=== PATIENT | female | born 1945 | race Caucasian/White ===

== ENCOUNTER 2020-12-06 21:02 | Inpatient (IN) | payer BC, MEDICAID ==
[~2020-12-06] VITALS: Ht 167.6 cm; Wt 78.9 kg
[2020-12-06 21:10] VITALS: BP_SYST 150
[2020-12-06] MEDS: ASPIRIN 81 MG TAB.CHEW PO ONE ×2 (23:13→23:20)
[2020-12-06 23:39] LABS: BASOPHILS % (AUTO) 0.7 % (0.0-2.0); EOSINOPHILS # (AUTO) 0.1 K/uL (0.0-0.4); EOSINOPHILS % (AUTO) 2.5 % (0.0-4.0); HEMATOCRIT 41.2 % (36-48); HEMOGLOBIN 13.7 g/dL (12.0-16.0); LYMPHOCYTES # (AUTO) 1.6 K/uL (1.0-5.5); LYMPHOCYTES % (AUTO) 29.6 % (20.5-51.5); MEAN CORPUSCULAR HEMOGLOBIN 31 pg (27-31); MEAN CORPUSCULAR HGB CONC 33 % (32-36); MEAN CORPUSCULAR VOLUME 93 fL (79.0-98.0); MONOCYTES # (AUTO) 0.5 K/uL (0.0-1.0); MONOCYTES % (AUTO) 8.4 % (1.7-9.3); NEUTROPHILS # (AUTO) 3.1 K/uL (1.8-7.7); NEUTROPHILS % (AUTO) 58.8 % (40.0-70.0); PLATELET COUNT (AUTO) 179 K/uL (130-430); RED BLOOD CELL COUNT(AUTO) 4.45 MIL/uL (4.2-6.2); RED CELL DISTRIBUTION WIDTH 14.6 % (9.0-15.0); WHITE BLOOD COUNT (AUTO) 5.3 K/uL (4.8-10.8)
[2020-12-06 23:54] LABS: ANION GAP 7 (5-15); CALCIUM 9.2 mg/dL (8.4-11.0); CHLORIDE 102 mmol/L (98-107); CREATININE 0.79 mg/dL (0.55-1.30); GLUCOSE 87 mg/dL (70-99); POTASSIUM 4.5 mmol/L (3.5-5.1); SODIUM SERUM 137 mmol/L (136-145); UREA NITROGEN, BLOOD 10 mg/dL (8-21)
[2020-12-06 23:56] LABS: PROTHROMBIN TIME 10.7 SECS (9.5-12.5)
[2020-12-07] MEDS ORDERED: AZITHROMYCIN 250 MG TABLET PO ONE
[2020-12-07 00:04] LABS: ALANINE AMINOTRANSFERASE 30 U/L (12-78); ALBUMIN 3.4 g/dL (3.4-4.8); ASPARTATE AMINOTRANSFERASE 32 U/L (10-37); LIPASE 229 U/L (73-393); TOTAL BILIRUBIN 0.8 mg/dL (0.0-1.0)
[2020-12-07 00:27] LABS: ERYTHROCYTE SEDIMENTATION RATE 48 MM/HR (0-20)
[2020-12-07 00:53] LABS: BILIRUBIN,URINE NEGATIVE (NEGATIVE); BLOOD, URINE NEGATIVE (NEGATIVE); CLARITY/URINE SL CLOUDY (CLEAR); COLOR,URINE YELLOW (YELLOW); GLUCOSE,URINE NEGATIVE (NEGATIVE); KETONES,URINE NEGATIVE (NEGATIVE); LEUKOCYTE ESTERASE ,URINE NEGATIVE (NEGATIVE); NITRITE, URINE POSITIVE (NEGATIVE); PROTEIN URINE NEGATIVE (NEGATIVE); UROBILINOGEN,URINE 0.2 (0.2-1.0)
[2020-12-07 01:04] LABS: BACTERIA,URINE MANY /HPF (None Seen); RBC,URINE 0-3 /HPF (0-3)
[2020-12-07] MEDS ORDERED: IOHEXOL 350 mgI/mL, 150 ML INFUS..BTL IV ONE (01:08)
[2020-12-07] MEDS ORDERED: cefTRIAXone 1 GM IVPB PREMIX 50 ML IV ONE ×2 (01:30)
[2020-12-07] MEDS ORDERED: VITD400 PO (02:21)
[2020-12-07] MEDS ORDERED: ZINC50TA69 PO (02:21)
[2020-12-07] MEDS ORDERED: ACETAMINOPHEN 325 MG TABLET PO PRN (06:00)
[2020-12-07] MEDS ORDERED: ALBUTEROL SULFATE 0.083% 2.5 MG/3 ML VIAL.NEB INH PRN (06:00)
[2020-12-07 06:08] VITALS: BP_SYST 156
[2020-12-07 08:00] VITALS: BP_SYST 128
[2020-12-07 08:13] LABS: BASOPHILS % (AUTO) 0.6 % (0.0-2.0); EOSINOPHILS # (AUTO) 0.1 K/uL (0.0-0.4); EOSINOPHILS % (AUTO) 2.8 % (0.0-4.0); HEMATOCRIT 41.2 % (36-48); HEMOGLOBIN 13.5 g/dL (12.0-16.0); MEAN CORPUSCULAR HEMOGLOBIN 30 pg (27-31); MEAN CORPUSCULAR HGB CONC 33 % (32-36); MEAN CORPUSCULAR VOLUME 92 fL (79.0-98.0); MONOCYTES # (AUTO) 0.3 K/uL (0.0-1.0); MONOCYTES % (AUTO) 7.4 % (1.7-9.3); NEUTROPHILS # (AUTO) 3.2 K/uL (1.8-7.7); NEUTROPHILS % (AUTO) 67.2 % (40.0-70.0); PLATELET COUNT (AUTO) 175 K/uL (130-430); RED BLOOD CELL COUNT(AUTO) 4.49 MIL/uL (4.2-6.2); RED CELL DISTRIBUTION WIDTH 14.5 % (9.0-15.0); WHITE BLOOD COUNT (AUTO) 4.7 K/uL (4.8-10.8)
[2020-12-07 08:32] LABS: ALANINE AMINOTRANSFERASE 24 U/L (12-78); ALBUMIN 3.2 g/dL (3.4-4.8); ANION GAP 6 (5-15); ASPARTATE AMINOTRANSFERASE 29 U/L (10-37); CHLORIDE 102 mmol/L (98-107); CREATININE 0.72 mg/dL (0.55-1.30); GLUCOSE 87 mg/dL (70-99); POTASSIUM 3.9 mmol/L (3.5-5.1); SODIUM SERUM 137 mmol/L (136-145); TOTAL BILIRUBIN 0.8 mg/dL (0.0-1.0); UREA NITROGEN, BLOOD 8 mg/dL (8-21)
[2020-12-07 12:00] VITALS: BP_SYST 138
[2020-12-07 15:15] VITALS: BP_SYST 129
[2020-12-07] MEDS ORDERED: AZITHROMYCIN 500 MG in NS 250 ML IV SCH (22:00)
[2020-12-08 06:52] LABS: BASOPHILS % (AUTO) 0.4 % (0.0-2.0); EOSINOPHILS # (AUTO) 0.2 K/uL (0.0-0.4); EOSINOPHILS % (AUTO) 3.6 % (0.0-4.0); HEMATOCRIT 38.2 % (36-48); HEMOGLOBIN 12.7 g/dL (12.0-16.0); LYMPHOCYTES # (AUTO) 1.4 K/uL (1.0-5.5); LYMPHOCYTES % (AUTO) 27.7 % (20.5-51.5); MEAN CORPUSCULAR HEMOGLOBIN 30 pg (27-31); MEAN CORPUSCULAR HGB CONC 33 % (32-36); MEAN CORPUSCULAR VOLUME 91 fL (79.0-98.0); MONOCYTES # (AUTO) 0.5 K/uL (0.0-1.0); MONOCYTES % (AUTO) 9.1 % (1.7-9.3); NEUTROPHILS % (AUTO) 59.2 % (40.0-70.0); PLATELET COUNT (AUTO) 160 K/uL (130-430); RED BLOOD CELL COUNT(AUTO) 4.21 MIL/uL (4.2-6.2); RED CELL DISTRIBUTION WIDTH 14.4 % (9.0-15.0)
[2020-12-08 07:24] LABS: ALANINE AMINOTRANSFERASE 28 U/L (12-78); ALBUMIN 2.7 g/dL (3.4-4.8); ANION GAP 7 (5-15); ASPARTATE AMINOTRANSFERASE 27 U/L (10-37); CALCIUM 8.7 mg/dL (8.4-11.0); CHLORIDE 105 mmol/L (98-107); CREATININE 0.66 mg/dL (0.55-1.30); GLUCOSE 91 mg/dL (70-99); SODIUM SERUM 140 mmol/L (136-145); TOTAL BILIRUBIN 0.4 mg/dL (0.0-1.0); UREA NITROGEN, BLOOD 10 mg/dL (8-21)
[2020-12-08 08:00] VITALS: BP_SYST 151
[2020-12-08] MEDS ORDERED: AZITHROMYCIN 250 MG TABLET PO SCH (09:00)
[2020-12-08 12:00] VITALS: BP_SYST 135
[2020-12-08 15:40] VITALS: BP_SYST 133
[2020-12-08] MEDS: AZITHROMYCIN 250 MG TABLET PO SCH (21:24)
[2020-12-09] VITALS: BP_SYST 141
[2020-12-09 02:34] VITALS: BP_SYST 141
[2020-12-09 08:00] VITALS: BP_SYST 144
[2020-12-09 12:00] VITALS: BP_SYST 131
[2020-12-09 16:00] VITALS: BP_SYST 139
[2020-12-09 20:00] VITALS: BP_SYST 149
[2020-12-09] MEDS: AZITHROMYCIN 250 MG TABLET PO SCH (20:37)
[2020-12-10] VITALS: BP_SYST 135
[2020-12-10 08:00] VITALS: BP_SYST 130
[2020-12-10 12:07] VITALS: BP_SYST 132
[2020-12-10 16:29] VITALS: BP_SYST 129
[2020-12-10 20:00] VITALS: BP_SYST 141
[2020-12-10] MEDS: AZITHROMYCIN 250 MG TABLET PO SCH (20:33)
[2020-12-11] VITALS: BP_SYST 125
[2020-12-11 12:15] VITALS: BP_SYST 135
[2020-12-11 16:11] VITALS: BP_SYST 140
[2020-12-11 20:00] VITALS: BP_SYST 146
[2020-12-11] MEDS: AZITHROMYCIN 250 MG TABLET PO SCH (21:14)
[2020-12-12] VITALS: BP_SYST 130
[2020-12-12 06:59] LABS: BASOPHILS % (AUTO) 0.3 % (0.0-2.0); EOSINOPHILS # (AUTO) 0.2 K/uL (0.0-0.4); EOSINOPHILS % (AUTO) 3.8 % (0.0-4.0); HEMATOCRIT 38.8 % (36-48); HEMOGLOBIN 13.1 g/dL (12.0-16.0); LYMPHOCYTES # (AUTO) 1.4 K/uL (1.0-5.5); LYMPHOCYTES % (AUTO) 27.6 % (20.5-51.5); MEAN CORPUSCULAR HEMOGLOBIN 31 pg (27-31); MEAN CORPUSCULAR HGB CONC 34 % (32-36); MEAN CORPUSCULAR VOLUME 91 fL (79.0-98.0); MONOCYTES # (AUTO) 0.4 K/uL (0.0-1.0); MONOCYTES % (AUTO) 8.9 % (1.7-9.3); NEUTROPHILS % (AUTO) 59.4 % (40.0-70.0); PLATELET COUNT (AUTO) 173 K/uL (130-430); RED BLOOD CELL COUNT(AUTO) 4.26 MIL/uL (4.2-6.2); RED CELL DISTRIBUTION WIDTH 14.5 % (9.0-15.0)
[2020-12-12 08:00] VITALS: BP_SYST 138
[2020-12-12 08:51] LABS: ANION GAP 7 (5-15); CHLORIDE 105 mmol/L (98-107); CREATININE 0.69 mg/dL (0.55-1.30); GLUCOSE 88 mg/dL (70-99); POTASSIUM 4.1 mmol/L (3.5-5.1); SODIUM SERUM 138 mmol/L (136-145); UREA NITROGEN, BLOOD 13 mg/dL (8-21)
[2020-12-12 09:50] LABS: ERYTHROCYTE SEDIMENTATION RATE 42 MM/HR (0-20)
[2020-12-12 11:28] LABS: C-REACTIVE PROTEIN QUANT 0.3 mg/dL (0-0.5)
[2020-12-12] MEDS ORDERED: LEVO500T89 PO (13:57)
[2020-12-12 16:02] VITALS: BP_SYST 125
== END 2020-12-12 17:30 | disposition home or self-care (01) | DRG 871 ==
LOC: SED 21:02 → STU 12-07 04:03 → SMU 12-08 10:36
PROVIDERS: ADMIT Internal Medicine Hospice and Palliative Medicine; ATTEND Internal Medicine Hospice and Palliative Medicine
DX: A41.9 Sepsis, unspecified organism (principal); J18.9 Pneumonia, unspecified organism; J96.01 Acute respiratory failure with hypoxia; N30.90 Cystitis, unspecified without hematuria; B96.20 Unspecified Escherichia coli [E. coli] as the cause of diseases classified elsewhere; Z20.822 Contact with and (suspected) exposure to COVID-19; Z86.16 Personal history of COVID-19; Z82.49 Family history of ischemic heart disease and other diseases of the circulatory system; Z87.01 Personal history of pneumonia (recurrent); Z88.5 Allergy status to narcotic agent; Z79.899 Other long term (current) drug therapy; Z90.710 Acquired absence of both cervix and uterus
CPT/HCPCS: 36415; 36600; 70450-TC; 71045; 71275; 73030; 76376; 80048; 80053; 81000; 82803-TC; 83690; 83880; 84484; 85025; 85379; 85610-TC; 85651-TC; 85730-TC; 86140; 87086; 93005; 93306; 99285; G0378; J0456; J0696; J7050; J7060; Q0144; Q9967; U0003

== ENCOUNTER 2021-08-26 17:59 | Emergency (ER) | payer OTHER, BC, MEDICAID ==
[~2021-08-26] VITALS: Ht 167.6 cm; Wt 76.2 kg
[~2021-08-26 17:59] MED LIST: LEVO500T90 PO; VITD400 PO; ZINC50TA69 PO
[2021-08-26 18:11] VITALS: BP_SYST 127
--- NOTE | 2021-08-26 18:40 | NUR ---
Patient triaged and placed in waiting room. VSS and patient appears in no acute distress at this time. Accompanied by self, awaiting available bed, and MD notified of need for MSE.
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
--- NOTE | 2021-08-26 19:00 | NUR ---
Dr Antoine evaluating patient in the triage room
[2021-08-26] MEDS ORDERED: NAPR-1172 PO (19:08)
--- NOTE | 2021-08-26 19:20 | NUR ---
Patient given written and verbal discharge instructions by Dr Antoine and verbalizes understanding. ER MD discussed with patient the results and treatment provided. Patient in stable condition. Rx of Naproxen sent to preferred pharmacy. Patient educated on pain management and to follow up with PMD. Opportunity for questions provided and answered by Dr Antoine.
--- NOTE | 2021-08-26 19:20 | NUR ---
Note undone in EDM - 08/26/21 at 2004 by IRINA Patient given written and verbal discharge instructions by Dr Antoine and verbalizes understanding. ER discussed with patient the results and treatment provided. Patient in stable condition. Rx of Naproxen sent to preferred pharmacy. Patient educated on pain management and to follow up with PMD. Opportunity for questions provided and answered by Dr Antoine.
== END 2021-08-26 19:20 | disposition home or self-care (01) ==
LOC: SED 17:59
DX: R07.89 Other chest pain (principal); Z88.5 Allergy status to narcotic agent; Z79.899 Other long term (current) drug therapy; V49.49XA Driver injured in collision with other motor vehicles in traffic accident, initial encounter; Y93.89 Activity, other specified; Y92.89 Other specified places as the place of occurrence of the external cause; Y99.8 Other external cause status
CPT/HCPCS: 71045; 99283

== ENCOUNTER 2021-10-22 16:03 | Emergency (ER) | payer BC, MEDICAID ==
[~2021-10-22] VITALS: Ht 167.6 cm; Wt 77.1 kg
[~2021-10-22 16:03] MED LIST changes: +LEVO-62 PO; -LEVO500T90 PO; +NAPR-1172 PO
[2021-10-22 16:05] VITALS: BP_SYST 133
--- NOTE | 2021-10-22 16:10 | NUR ---
Patient triaged and placed in waiting room. VSS and patient appears in no acute distress at this time. Accompanied by SELF, awaiting available bed, and MD notified of need for MSE.
--- NOTE | 2021-10-22 16:20 | NUR ---
PT presents to the ER BIB self CC right shoulder pain. Pt c/o 6/10 pain. Pt noted recurrent UTI, took specimen POC reveals high nitrates. NOtified .
--- NOTE | 2021-10-22 16:30 | NUR ---
ER at bedside examining patient.
[2021-10-22] MEDS ORDERED: CEPH-548 PO (19:02)
[2021-10-22] MEDS ORDERED: METH-634 PO (19:02)
[2021-10-22] MEDS ORDERED: IBUP-1969 PO (19:02)
[2021-10-22 19:08] VITALS: BP_SYST 128
--- NOTE | 2021-10-22 19:11 | NUR ---
Pt Patient given written and verbal discharge instructions and verbalizes understanding. ER MD discussed with patient the results and treatment provided. Patient in stable condition. ID arm band removed. IV catheter removed intact and dressing applied, no active bleeding. Rx of cephalexin and ibuprofen given. Patient educated on pain management and to follow up with PMD. Opportunity for questions provided and answered. Medication side effect fact sheet provided.
[2021-10-22 19:16] LABS: BILIRUBIN,URINE NEGATIVE (NEGATIVE); CLARITY/URINE SL CLOUDY (CLEAR); COLOR,URINE YELLOW (YELLOW); GLUCOSE,URINE NEGATIVE (NEGATIVE); KETONES,URINE 1+ (NEGATIVE); LEUKOCYTE ESTERASE ,URINE TRACE (NEGATIVE); NITRITE, URINE POSITIVE (NEGATIVE); PROTEIN URINE NEGATIVE (NEGATIVE); UROBILINOGEN,URINE 0.2 (0.2-1.0)
[2021-10-22 19:34] LABS: BLOOD, URINE TRACE (NEGATIVE)
[2021-10-22 19:37] LABS: BACTERIA,URINE MODERATE /HPF (None Seen); RBC,URINE 0-3 /HPF (0-3)
[2021-10-22 19:38] LABS: MUCUS,URINE None Seen /LPF (None Seen)
== END 2021-10-22 19:08 | disposition home or self-care (01) ==
LOC: SED 16:03
DX: M62.838 Other muscle spasm (principal); N39.0 Urinary tract infection, site not specified; M25.512 Pain in left shoulder; R51.9 Headache, unspecified; Z79.899 Other long term (current) drug therapy
CPT/HCPCS: 73030; 81000; 87086; 99284

== ENCOUNTER 2021-11-09 18:54 | Emergency (ER) | payer OTHER, MEDICAID ==
[~2021-11-09] VITALS: Ht 172.7 cm; Wt 81.6 kg
[~2021-11-09 18:54] MED LIST changes: +CEPH-548 PO; +IBUP-1969 PO; +METH-634 PO
[2021-11-09 19:06] VITALS: BP_SYST 150
== END 2021-11-09 21:15 | disposition left against medical advice (07) ==
LOC: SED 18:54
DX: R51.9 Headache, unspecified (principal); Z53.21 Procedure and treatment not carried out due to patient leaving prior to being seen by health care provider

== ENCOUNTER 2022-08-23 19:48 | Emergency (ER) | payer OTHER, MEDICAID ==
[~2022-08-23] VITALS: Ht 167.6 cm; Wt 72.6 kg
[2022-08-23 20:02] VITALS: BP_SYST 184
[2022-08-23] MEDS ORDERED: LIDOCAINE PATCH 5% 1 EA TP ONE (20:30)
[2022-08-23 20:32] LABS: BILIRUBIN,URINE NEGATIVE (NEGATIVE); BLOOD, URINE NEGATIVE (NEGATIVE); CLARITY/URINE SL CLOUDY (CLEAR); COLOR,URINE YELLOW (YELLOW); GLUCOSE,URINE NEGATIVE (NEGATIVE); KETONES,URINE NEGATIVE (NEGATIVE); LEUKOCYTE ESTERASE ,URINE NEGATIVE (NEGATIVE); NITRITE, URINE NEGATIVE (NEGATIVE); PROTEIN URINE NEGATIVE (NEGATIVE)
[2022-08-23 20:55] LABS: BASOPHILS % (AUTO) 0.3 % (0.0-2.0); EOSINOPHILS # (AUTO) 0.1 K/uL (0.0-0.4); EOSINOPHILS % (AUTO) 2.4 % (0.0-4.0); HEMATOCRIT 41.8 % (36-48); LYMPHOCYTES # (AUTO) 1.5 K/uL (1.0-5.5); LYMPHOCYTES % (AUTO) 32.1 % (20.5-51.5); MEAN CORPUSCULAR HEMOGLOBIN 30 pg (27-31); MEAN CORPUSCULAR HGB CONC 34 % (32-36); MEAN CORPUSCULAR VOLUME 90 fL (79.0-98.0); MONOCYTES # (AUTO) 0.4 K/uL (0.0-1.0); MONOCYTES % (AUTO) 7.7 % (1.7-9.3); NEUTROPHILS # (AUTO) 2.7 K/uL (1.8-7.7); NEUTROPHILS % (AUTO) 57.5 % (40.0-70.0); PLATELET COUNT (AUTO) 218 K/uL (130-430); RED BLOOD CELL COUNT(AUTO) 4.65 MIL/uL (4.2-6.2); RED CELL DISTRIBUTION WIDTH 13.3 % (9.0-15.0); WHITE BLOOD COUNT (AUTO) 4.7 K/uL (4.8-10.8)
[2022-08-23 21:04] LABS: ALANINE AMINOTRANSFERASE 34 U/L (12-78); ALBUMIN 3.7 g/dL (3.4-4.8); ANION GAP 3 (5-15); ASPARTATE AMINOTRANSFERASE 42 U/L (10-37); CHLORIDE 101 mmol/L (98-107); CREATININE 0.88 mg/dL (0.55-1.30); GLUCOSE 85 mg/dL (70-99); LIPASE 262 U/L (73-393); TOTAL BILIRUBIN 0.6 mg/dL (0.0-1.0); UREA NITROGEN, BLOOD 20 mg/dL (8-21)
[2022-08-23] MEDS: KETOROLAC TROMETHAMINE 30 MG VIAL IM ONE ×2 (21:36→21:58)
[2022-08-23] MEDS: ACETAMINOPHEN 500 MG TABLET PO ONE ×2 (21:37→22:06)
[2022-08-23] MEDS ORDERED: BACL10TA PO (23:29)
[2022-08-23] MEDS ORDERED: AZIT-93 PO (23:29)
[2022-08-23] MEDS ORDERED: ACET-2634 PO (23:29)
[2022-08-23 23:35] VITALS: BP_SYST 146
== END 2022-08-23 23:35 | disposition home or self-care (01) ==
LOC: SED 19:48
DX: J18.9 Pneumonia, unspecified organism (principal); M54.6 Pain in thoracic spine; R93.89 Abnormal findings on diagnostic imaging of other specified body structures; R10.32 Left lower quadrant pain; Z88.5 Allergy status to narcotic agent; Z79.899 Other long term (current) drug therapy
CPT/HCPCS: 99284; 74176; 71046; 80053; 83690; 85025; 87086; 36415; 76376; 81003; J1885

== ENCOUNTER 2023-07-03 16:02 | Emergency (ER) | payer BC, MEDICAID ==
[~2023-07-03] VITALS: Ht 167.6 cm; Wt 69.4 kg
[~2023-07-03 16:02] MED LIST changes: +ACET-2634 PO; +AZIT-93 PO; +BACL10TA PO
[2023-07-03 16:21] VITALS: BP_SYST 181; PULSE 78; RESP 18; TEMP 99.4; O2SAT 98
[2023-07-03 17:49] LABS: BASOPHILS % (AUTO) 0.2 % (0.0-2.0); EOSINOPHILS % (AUTO) 0.2 % (0.0-4.0); HEMATOCRIT 40.2 % (36-48); HEMOGLOBIN 13.7 g/dL (12.0-16.0); LYMPHOCYTES # (AUTO) 0.3 K/uL (1.0-5.5); LYMPHOCYTES % (AUTO) 3.1 % (20.5-51.5); MEAN CORPUSCULAR HEMOGLOBIN 31 pg (27-31); MEAN CORPUSCULAR HGB CONC 34 % (32-36); MEAN CORPUSCULAR VOLUME 91 fL (79.0-98.0); MONOCYTES # (AUTO) 0.2 K/uL (0.0-1.0); MONOCYTES % (AUTO) 2.9 % (1.7-9.3); NEUTROPHILS # (AUTO) 7.7 K/uL (1.8-7.7); NEUTROPHILS % (AUTO) 93.6 % (40.0-70.0); PLATELET COUNT (AUTO) 132 K/uL (130-430); RED BLOOD CELL COUNT(AUTO) 4.43 MIL/uL (4.2-6.2); RED CELL DISTRIBUTION WIDTH 13.4 % (9.0-15.0); WHITE BLOOD COUNT (AUTO) 8.3 K/uL (4.8-10.8)
[2023-07-03 18:37] LABS: ALANINE AMINOTRANSFERASE 21 U/L (12-78); ALBUMIN 3.8 g/dL (3.4-4.8); ANION GAP 6 (5-15); ASPARTATE AMINOTRANSFERASE 37 U/L (10-37); CALCIUM 8.4 mg/dL (8.4-11.0); CARBON DIOXIDE 30 mmol/L (23-29); CHLORIDE 105 mmol/L (98-107); CREATININE 0.92 mg/dL (0.55-1.30); GLUCOSE 107 mg/dL (74-106); SODIUM SERUM 141 mmol/L (136-145); TOTAL BILIRUBIN 1.1 mg/dL (0.0-1.0); TOTAL PROTEIN, SERUM 7.6 g/dL (6.4-8.3); UREA NITROGEN, BLOOD 27 mg/dL (8-21)
[2023-07-03 18:43] LABS: PROTHROMBIN TIME 10.7 SECS (9.5-12.5)
[2023-07-03 19:08] LABS: AMYLASE 82 U/L (0-100); BILIRUBIN,DIRECT 0.4 mg/dL (0.0-0.3); LACTATE DEHYDROGENASE 203 U/L (81-234); LIPASE 56 U/L (16-77)
[2023-07-03] MEDS ORDERED: IBUP-1969 PO (19:18)
[2023-07-03] MEDS ORDERED: HYDR-3917 PO (19:18)
[2023-07-03 19:55] VITALS: BP_SYST 148; PULSE 75; RESP 18; TEMP 98.9; O2SAT 97
== END 2023-07-03 19:55 | disposition home or self-care (01) ==
LOC: SED 16:02
DX: K80.50 Calculus of bile duct without cholangitis or cholecystitis without obstruction (principal); R10.13 Epigastric pain; R11.0 Nausea; Z88.5 Allergy status to narcotic agent; Z79.899 Other long term (current) drug therapy
CPT/HCPCS: 36415; 80048; 80076; 82150; 83605; 83615; 83690; 84484; 85025; 85610; 85730; 99284

== ENCOUNTER 2023-10-20 12:18 | Emergency (ER) | payer BC, MEDICAID ==
[~2023-10-20] VITALS: Ht 167.6 cm; Wt 68.0 kg
[~2023-10-20 12:18] MED LIST changes: +HYDR-3917 PO
[2023-10-20 12:32] VITALS: BP_SYST 124; PULSE 66; RESP 18; TEMP 97.6; O2SAT 99
[2023-10-20 15:28] VITALS: BP_SYST 142; PULSE 77; RESP 17; TEMP 97; O2SAT 98
== END 2023-10-20 15:27 | disposition home or self-care (01) ==
LOC: SED 12:18
DX: S32.89XA Fracture of other parts of pelvis, initial encounter for closed fracture (principal); S50.02XA Contusion of left elbow, initial encounter; S80.12XA Contusion of left lower leg, initial encounter; Z90.710 Acquired absence of both cervix and uterus; Z88.5 Allergy status to narcotic agent; Z79.899 Other long term (current) drug therapy; Z79.2 Long term (current) use of antibiotics; W18.39XA Other fall on same level, initial encounter; Y93.89 Activity, other specified; Y92.89 Other specified places as the place of occurrence of the external cause; Y99.8 Other external cause status
CPT/HCPCS: 70450-TC; 72170-TC; 73590; 99284

== ENCOUNTER 2023-11-04 16:53 | Emergency (ER) | payer BC, MEDICAID ==
[~2023-11-04] VITALS: Ht 167.6 cm; Wt 72.6 kg
[2023-11-04 17:10] VITALS: BP_SYST 108; PULSE 68; RESP 15; TEMP 98.8; O2SAT 95
[2023-11-04] MEDS ORDERED: DICL20GE TP (19:47)
[2023-11-04 19:55] VITALS: BP_SYST 140; PULSE 62; RESP 19; TEMP 97.4; O2SAT 99
== END 2023-11-04 19:55 | disposition home or self-care (01) ==
LOC: SED 16:53
DX: S80.12XA Contusion of left lower leg, initial encounter (principal); I10 Essential (primary) hypertension; Z88.5 Allergy status to narcotic agent; Z79.899 Other long term (current) drug therapy; Z79.2 Long term (current) use of antibiotics; X58.XXXA Exposure to other specified factors, initial encounter; Y93.89 Activity, other specified; Y92.89 Other specified places as the place of occurrence of the external cause; Y99.8 Other external cause status
CPT/HCPCS: 93971; 99284